=== PATIENT | female | born 1995 | race African-American/Black ===

== ENCOUNTER 2023-09-18 16:39 | Emergency (ER) | payer SELFPAY ==
[~2023-09-18] VITALS: Ht 167.6 cm; Wt 100.0 kg
[2023-09-18 16:58] VITALS: O2SAT 100
[2023-09-18] MEDS ORDERED: KETOROLAC 60MG/2ML VIAL IM STA (17:39)
[2023-09-18] MEDS ORDERED: HYDROCODONE/ACETAMINOPHEN 5/325MG TABLET PO STA (17:39)
[2023-09-18] MEDS ORDERED: NAPR-681 PO (19:09)
[2023-09-18] MEDS ORDERED: HYDR-4001 MT (19:09)
[2023-09-18] MEDS ORDERED: KETOROLAC 60MG/2ML VIAL IM NR (19:45)
[2023-09-18] MEDS ORDERED: HYDROCODONE/ACETAMINOPHEN 5/325MG TABLET PO NR (19:45)
[2023-09-18 20:05] VITALS: BP 128/86; PULSE 94; RESP 16; TEMP 98.7
== END 2023-09-18 20:09 | disposition home or self-care (01) ==
LOC: ER 16:39
DX: M25.562 Pain in left knee (principal); E11.9 Type 2 diabetes mellitus without complications
CPT/HCPCS: 81025; 73562; 96372; 99283; J1885; Z7610 ×2